=== PATIENT | female | born 1955 | race Caucasian/White ===

== ENCOUNTER 2021-07-07 20:11 | Inpatient (IN) | payer MEDICAID, OTHER ==
[~2021-07-07] VITALS: Ht 154.9 cm; Wt 65.8 kg
--- NOTE | 2021-07-07 20:36 | NUR ---
PT AAOX4. BIBSELF C/O BACK PAIN. SLIGHT SOB WORST UPON INHALATION. PLACED IN BED 3 ON MONITOR AND PULSE OX. AWAITING ER MD FOR EVAL AND ORDERS.
[2021-07-07 20:50] LABS: BASOPHILS % (AUTO) 0.6 % (0.0-2.0); EOSINOPHILS % (AUTO) 0.5 % (0.0-6.0); HEMATOCRIT 34 % (33-45); HEMOGLOBIN 11.1 g/dL (11.5-14.8); LYMPHOCYTES # (AUTO) 1.6 K/uL (0.8-4.8); LYMPHOCYTES % (AUTO) 18.2 % (20.0-44.0); MEAN CORPUSCULAR HGB CONC 33 g/dl (31.0-36.0); MEAN CORPUSCULAR VOLUME 86 fL (82-100); MONOCYTES # (AUTO) 0.5 K/uL (0.1-1.30); NEUTROPHILS # (AUTO) 6.4 K/uL (1.8-8.9); NEUTROPHILS % (AUTO) 74.7 % (43.0-81.0); PLATELET COUNT (AUTO) 226 K/uL (150-450); RED BLOOD CELL COUNT(AUTO) 3.96 MIL/uL (4.0-5.2); WHITE BLOOD COUNT (AUTO) 8.5 K/uL (4.3-11.0)
[2021-07-07] MEDS ORDERED: ONDANSETRON HCL/PF 4 MG/2 ML VIAL ONE (20:56)
[2021-07-07] MEDS ORDERED: MORPHINE SULFATE INJ 4 MG/ML DISP.SYRIN ONE (20:56)
[2021-07-07] MEDS ORDERED: MORPHINE SULFATE INJ 2 MG/ML DISP.SYRIN IV ONE (21:00)
[2021-07-07] MEDS ORDERED: ONDANSETRON HCL/PF - ER 4 MG/2 ML VIAL IV ONE (21:00)
[2021-07-07 21:12] LABS: CALCIUM, SERUM 8.9 mg/dL (8.5-10.1); CREATININE 1.6 mg/dL (0.6-1.3); POTASSIUM 4.1 mmol/L (3.5-5.1)
[2021-07-07] MEDS ORDERED: ASPIRIN EC 325 MG TABLET.DR PO ONE ×2 (22:00→22:05)
--- NOTE | 2021-07-07 22:27 | NUR ---
REPORT GIVEN TO SOFIA GREENE FOR ROBI. PT TRANSFERED PER [facility]S PROTOCOL
[2021-07-07 22:30] VITALS: BP_SYST 112; BP_SYST 151; BP_DIAS 70; BP_DIAS 75
--- NOTE | 2021-07-07 22:43 | NUR ---
TRANSFERRED PT TO 328 PER [facility]
--- NOTE | 2021-07-07 23:00 | NUR ---
WEIGHT INSPECTORGROUND CREW LINESMAN NOTE: RECEIVED PATIENT FROM ER VIA [facility] ON STABLE CONDITION, PLACE AT 3282, PATIENT IS A/OX4 ITALIAN SPEAKING, AMBULATORY, SPOKE TO SON MILAN FOR TRANSLATION, DURING ASSESSMENT, PATIENT DOES NOT COMPLAIN OF PAIN OR ANY DISCOMFORT AT THIS TIME, SKIN ASSESSMENT DONE NO MAJOR SKIN ISSUES NOTED, PICTURE TAKEN, INVENTORY DONE DOCUMENTED AND SIGN, PATIENT WITH CARDIAC PACEMAKER AT LEFT UPPER CHEST WALL, ON TELE MONITORING A PACING 75, PATIENT WAS ORIENTED TO PLACE, REMIND TO USE THE CALL LIGHTS WHEN NEEDED ASSISTANCE, REFUSED VACCINATION, PATIENT KEPT CLEAN AND DRY, ALL NEEDS MET, WILL CONTINUE TO MONITOR.
[2021-07-08] MEDS ORDERED: MAG HYDROX/AL HYDROX/SIMETH 30 ML UDC PO PRN
[2021-07-08] MEDS ORDERED: MORPHINE SULFATE INJ 2 MG/ML DISP.SYRIN IV PRN
[2021-07-08] MEDS ORDERED: ZOLPIDEM TARTRATE 5 MG TABLET PO PRN
[2021-07-08] MEDS ORDERED: ONDANSETRON HCL/PF 4 MG/2 ML VIAL IVP PRN
[2021-07-08] MEDS ORDERED: HYDROCODONE/APAP 5/325MG TABLET PO PRN
[2021-07-08] MEDS ORDERED: Z GUARD REMEDY 2 OZ OINT TP PRN
[2021-07-08] MEDS ORDERED: MAGNESIUM HYDROXIDE 30 ML UDC PO PRN
[2021-07-08 00:34] VITALS: BP 112/70
[2021-07-08 04:05] VITALS: BP 98/58
--- NOTE | 2021-07-08 06:23 | NUR ---
ORNAMENTAL BRICK INSTALLER CLOSING NOTE PATIENT SLEEP IN BED COMFORTABLY,AROUSABLE TO VERBAL STIMULI BED IN LOW POSITION, CALL LIGHTS WITHIN REACH, NO COMPLAIN OF PAIN AND DISCOMFORT AT THIS TIME, PATIENT IS A/0X4 ARABIC SPEAKING, ON TELE MONITORING WITH A PACING STABLE, AMBULATORY STABLE, WITH IV LINE AT L ARM #20 SL, PATIENT ON BRP WITH SUPERVISION, DUE MEDS GIVEN, KEPT CLEAN AND DRY, ENDORSE TO INCOMING SHIFT.
[2021-07-08 06:51] LABS: BASOPHILS % (AUTO) 0.5 % (0.0-2.0); EOSINOPHILS % (AUTO) 0.7 % (0.0-6.0); HEMATOCRIT 33 % (33-45); HEMOGLOBIN 10.7 g/dL (11.5-14.8); LYMPHOCYTES # (AUTO) 1.2 K/uL (0.8-4.8); LYMPHOCYTES % (AUTO) 19.3 % (20.0-44.0); MEAN CORPUSCULAR HGB CONC 33 g/dl (31.0-36.0); MEAN CORPUSCULAR VOLUME 87 fL (82-100); MONOCYTES # (AUTO) 0.4 K/uL (0.1-1.30); MONOCYTES % (AUTO) 6.8 % (2.0-12.0); NEUTROPHILS # (AUTO) 4.6 K/uL (1.8-8.9); NEUTROPHILS % (AUTO) 72.7 % (43.0-81.0); PLATELET COUNT (AUTO) 224 K/uL (150-450); RED BLOOD CELL COUNT(AUTO) 3.76 MIL/uL (4.0-5.2); WHITE BLOOD COUNT (AUTO) 6.3 K/uL (4.3-11.0)
[2021-07-08] MEDS: ACETAMINOPHEN 325 MG TABLET PO PRN ×2 (06:54→15:28)
[2021-07-08 07:10] LABS: CREATININE 1.5 mg/dL (0.6-1.3); MAGNESIUM 2.6 mg/dL (1.8-2.4); PHOSPHORUS 3.9 mg/dL (2.5-4.9); POTASSIUM 4.8 mmol/L (3.5-5.1)
[2021-07-08 07:33] LABS: THYROID STIMULATING HORMONE 5.381 uIU/mL (0.358-3.74)
[2021-07-08] MEDS: PANTOPRAZOLE 40 MG TABLET.DR PO SCH (07:46)
--- NOTE | 2021-07-08 08:00 | NUR ---
RN OPENING NOTE PT RECEIVED LYING IN BED WITH HOB AT 30 DEGREES. PT IS ON RA SAT O2% 100 WITH NO SIGNS OF LABORED BREATHING OR DISTRESS. PT IS A/OX4 AND [place] SPEAKING ONLY. PT IS TELE MONITORED WITH RADHA PACEMAKER. PT IS CONTINENT WITH BRP AND IS AMBULATORY WITH INTACT SKIN, PT IS ON CARDIAC DIET. BED IS LOCKED IN LOWEST POSITION X2 BED RAILS UP, CALL HAWKINS IS WITHIN REACH AND ALL HOSPITAL SAFETY MEASURES ARE IN PLACE. WILL CONTINUE TO MONITOR THIS SHIFT.
[2021-07-08 08:44] VITALS: BP 134/67
[2021-07-08] MEDS: ASPIRIN 81 MG TAB.CHEW PO SCH (09:42)
[2021-07-08] MEDS ORDERED: FUROSEMIDE 40 MG/4 ML VIAL IV SCH (10:00)
[2021-07-08] MEDS ORDERED: CARV12.52 PO (10:13)
[2021-07-08] MEDS ORDERED: ATOR40TA PO (10:13)
[2021-07-08] MEDS ORDERED: LOSA50TA39 PO (10:13)
[2021-07-08] MEDS ORDERED: EZET10TA16 PO (10:13)
[2021-07-08] MEDS ORDERED: FURO-144 PO (10:13)
[2021-07-08] MEDS ORDERED: APIX5TAB PO (10:13)
[2021-07-08] MEDS ORDERED: ASPI-1420 PO (10:13)
[2021-07-08] MEDS ORDERED: LEVO125T8 PO (10:13)
[2021-07-08] MEDS ORDERED: AMIO200T5 PO (10:13)
[2021-07-08] MEDS: POTASSIUM CHLORIDE 20 MEQ TAB.PRT.SR PO SCH (11:04)
[2021-07-08 16:10] VITALS: BP 126/68
--- NOTE | 2021-07-08 17:30 | NUR ---
GARNISHER NOTE FAMILY CALLED REGARDING PT AND MENTIONED THAT PT HAS CARDIAC APPOINTMENT AT [facility] ON 07/10/21 AND DOES NOT WANT TO MISS APPOINTMENT. FAMILY ALSO STATED THAT THEY DO NOT WANT [facility] DO[facility] PERFORMING PROCEDURES ON PT AND PREFER THEIR OWN DOCTORS AT [facility] PERFORM PROCEDURES. WILL ENDORSE TO CARPET BINDER NURSE.
[2021-07-08] MEDS: CARVEDILOL 12.5 MG TABLET PO SCH (18:48)
[2021-07-08] MEDS: APIXABAN 5 MG TABLET PO SCH (18:50)
--- NOTE | 2021-07-08 19:34 | NUR ---
RN CLOSING NOTE PT IS LYING IN BED COMFORTABLY WITH HOB AT 30 DEGREES. PT CONTINUES TO BE ON RA SAT O2% 100 WITH NO SIGNS OF LABORED BREATHING OR DISTRESS. PT IS A/OX4 AND. PT IS TELE MONITORED WITH RADHA PACEMAKER. PT IS CONTINENT WITH BRP AND IS AMBULATORY WITH INTACT SKIN, PT IS ON CARDIAC DIET. BED IS LOCKED IN LOWEST POSITION X2 BED RAILS UP, CALL HAWKINS IS WITHIN REACH AND ALL HOSPITAL SAFETY MEASURES ARE IN PLACE. ALL MEDICATIONS HAVE BEEN ADMINISTERED. WILL ENDORSE TO TIME MOTION ANALYST NURSE FOR ROBI.
[2021-07-08 20:00] VITALS: BP_SYST 112; BP_SYST 122; BP_DIAS 50; BP_DIAS 80
--- NOTE | 2021-07-09 05:09 | NUR ---
CLOSING NOTES: AMBULATES TO THE BATHROOM STEADY ON HER LEGS NO sob NO C/O PAIN SMILING AND COOPERATIVE AND COMFORTABLE
[2021-07-09 06:36] LABS: BASOPHILS % (AUTO) 0.7 % (0.0-2.0); EOSINOPHILS % (AUTO) 0.5 % (0.0-6.0); HEMATOCRIT 33 % (33-45); LYMPHOCYTES # (AUTO) 1.5 K/uL (0.8-4.8); LYMPHOCYTES % (AUTO) 21.9 % (20.0-44.0); MEAN CORPUSCULAR HGB CONC 34 g/dl (31.0-36.0); MEAN CORPUSCULAR VOLUME 86 fL (82-100); MONOCYTES # (AUTO) 0.4 K/uL (0.1-1.30); NEUTROPHILS # (AUTO) 4.7 K/uL (1.8-8.9); NEUTROPHILS % (AUTO) 70.9 % (43.0-81.0); PLATELET COUNT (AUTO) 208 K/uL (150-450); RED BLOOD CELL COUNT(AUTO) 3.79 MIL/uL (4.0-5.2); WHITE BLOOD COUNT (AUTO) 6.6 K/uL (4.3-11.0)
[2021-07-09 06:56] LABS: ALBUMIN 3.2 g/dL (3.4-5.0); BILIRUBIN,TOTAL 0.7 mg/dL (0.2-1.0); CALCIUM, SERUM 9.1 mg/dL (8.5-10.1); CREATININE 1.6 mg/dL (0.6-1.3); MAGNESIUM 2.7 mg/dL (1.8-2.4); PHOSPHORUS 4.4 mg/dL (2.5-4.9); POTASSIUM 4.4 mmol/L (3.5-5.1); TOTAL PROTEIN, SERUM 6.8 g/dL (6.4-8.2)
[2021-07-09] MEDS ORDERED: LEVOTHYROXINE SODIUM 125 MCG TABLET PO SCH (07:30)
--- NOTE | 2021-07-09 07:45 | NUR ---
RN MS OPENING NOTE Patient in bed, asleep. A/O x 4. Stable on room air, no SOB or s/s of distress noted. IV access on LFA #20G, intact and patent. Safety precautions in place: bed in low, locked position; siderails up x 2; call light within reach. Will continue to monitor.
[2021-07-09 08:40] VITALS: BP 106/65
[2021-07-09] MEDS ORDERED: LOSARTAN POTASSIUM 50 MG TABLET PO SCH (09:00)
[2021-07-09] MEDS ORDERED: AMIODARONE HCL 200 MG TABLET PO SCH (09:00)
[2021-07-09] MEDS ORDERED: EZETIMIBE 10 MG TABLET PO SCH (09:00)
[2021-07-09] MEDS ORDERED: FUROSEMIDE 40 MG TABLET PO SCH (09:00)
[2021-07-09] MEDS ORDERED: ATORVASTATIN 40 MG TABLET PO SCH (09:00)
[2021-07-09] MEDS ORDERED: ASPIRIN EC 81 MG TABLET.DR PO SCH (09:00)
[2021-07-09] MEDS: POTASSIUM CHLORIDE 20 MEQ TAB.PRT.SR PO SCH ×2 (09:00→09:07)
[2021-07-09] MEDS: ASPIRIN 81 MG TAB.CHEW PO SCH (09:07)
[2021-07-09] MEDS: PANTOPRAZOLE 40 MG TABLET.DR PO SCH (09:07)
[2021-07-09 09:08] LABS: IRON, SERUM 49 ug/dl (50-175); TOTAL IRON BINDING CAPACITY 330 ug/dl (250-450)
[2021-07-09] MEDS: CARVEDILOL 12.5 MG TABLET PO SCH (09:09)
[2021-07-09] MEDS: APIXABAN 5 MG TABLET PO SCH (09:15)
[2021-07-09 09:28] LABS: FERRITIN 36 ng/mL (8-388)
[2021-07-09 09:37] VITALS: BP 106/65
[2021-07-09] MEDS ORDERED: ATOR80TA PO (12:20)
--- NOTE | 2021-07-09 13:40 | NUR ---
LIEUTENANT COLONEL NOTE PATIENT WAS DISCHARGED STABLE. VS BP 125/67 NE 87 RR 16 T 96.7 SA02 95%. PATIENT WAS PICKED UP BY HER DTRCAT. A/O X4. AMBULATORY. REMOVED ID [id number] AND IV ACCESS. HEALTH TEACHING AND DISCHARGE INSTRUCTIONS GIVEN. PT VERBALIZED UNDERSTANDING. ALL FORMS WERE SIGNED.
== END 2021-07-09 14:15 | disposition home or self-care (01) | DRG 198 ==
LOC: ER 20:25 → TELE 21:47 → MED 07-08 11:10
PROVIDERS: ADMIT Student in an Organized Health Care Education/Training Program; ATTEND Nurse Practitioner Acute Care
DX: I25.10 Atherosclerotic heart disease of native coronary artery without angina pectoris (principal); N17.0 Acute kidney failure with tubular necrosis; I50.33 Acute on chronic diastolic (congestive) heart failure; I11.0 Hypertensive heart disease with heart failure; D63.8 Anemia in other chronic diseases classified elsewhere; Z20.822 Contact with and (suspected) exposure to COVID-19; E03.9 Hypothyroidism, unspecified; E11.9 Type 2 diabetes mellitus without complications; E66.9 Obesity, unspecified; E78.5 Hyperlipidemia, unspecified; F17.210 Nicotine dependence, cigarettes, uncomplicated; Z95.1 Presence of aortocoronary bypass graft; Z68.27 Body mass index [BMI] 27.0-27.9, adult; Z71.6 Tobacco abuse counseling; I44.7 Left bundle-branch block, unspecified; T82.190A Other mechanical complication of cardiac electrode, initial encounter; Y84.8 Other medical procedures as the cause of abnormal reaction of the patient, or of later complication, without mention of misadventure at the time of the procedure; Y92.009 Unspecified place in unspecified non-institutional (private) residence as the place of occurrence of the external cause
CPT/HCPCS: 36415; 71045-TC; 80048-TC; 80053-TC; 80061-TC; 82728-TC; 83540-TC; 83735-TC; 83880; 84100-TC; 84439-TC; 84443-TC; 84484-TC; 85025-TC; 87081-TC; 93307-TC; C9803; G0378; J1940; J2270; J2405